=== PATIENT | female | born 1975 | race Caucasian/White ===

== ENCOUNTER 2016-08-31 09:15 | Emergency (ER) | payer OTHER ==
[2016-08-31] MEDS ORDERED: ACETAMINOPHEN 325 MG TABLET PO STA (09:53)
[2016-08-31] MEDS ORDERED: IBUPROFEN 400 MG TABLET PO STA (09:53)
[2016-08-31] MEDS ORDERED: TETANUS/DIPHTHERIA/PERTUSSIS 0.5 ML SYRINGE IM ONE ×2 (09:55→10:06)
[2016-08-31] MEDS ORDERED: IBUPROFEN 400 MG TABLET PO ONE (10:06)
[2016-08-31] MEDS ORDERED: ACETAMINOPHEN 325 MG TABLET PO ONE (10:06)
== END 2016-08-31 12:22 | disposition home or self-care (01) ==
DX: S52.501A Unspecified fracture of the lower end of right radius, initial encounter for closed fracture (principal); S60.221A Contusion of right hand, initial encounter; S01.311A Laceration without foreign body of right ear, initial encounter; S00.431A Contusion of right ear, initial encounter; W01.0XXA Fall on same level from slipping, tripping and stumbling without subsequent striking against object, initial encounter; Z23 Encounter for immunization; I10 Essential (primary) hypertension; F17.200 Nicotine dependence, unspecified, uncomplicated
CPT/HCPCS: 29125; 73110; 73130; 90471; 90715; 99283; 99284; A9270

== ENCOUNTER 2016-12-23 08:00 | Outpatient (CLI) | payer OTHER ==
[2016-12-23 18:54] LABS: BASOPHILS % (AUTO) 0.7 %; EOSINOPHILS # (AUTO) 0.1 10^3/uL (0.0-0.7); EOSINOPHILS % (AUTO) 1.5 %; HCT - HEMATOCRIT 31.7 % (37.0-47.0); HGB - HEMOGLOBIN 10.7 g/dL (12.0-16.0); LYMPHOCYTES # (AUTO) 1.1 10^3/uL (1.5-3.5); LYMPHOCYTES % (AUTO) 16.9 %; MEAN CORPUSCULAR HEMOGLOBIN 36.3 pg (27.0-31.0); MEAN CORPUSCULAR HGB CONC 33.7 g/dL (32.0-36.0); MEAN CORPUSCULAR VOLUME 107.9 fL (81.0-99.0); MONOCYTES # (AUTO) 0.5 10^3/uL (0.0-1.0); MONOCYTES % (AUTO) 7.2 %; NEUTROPHILS # (AUTO) 4.9 10^3/uL (1.5-6.6); NEUTROPHILS % (AUTO) 73.7 %; RED BLOOD COUNT 2.94 10^6/uL (4.20-5.40); RED CELL DISTRIBUTION WIDTH 15.7 % (12.0-15.0); UNCORRECTED WHITE BLOOD COUNT 6.6 x10^3/uL; WHITE BLOOD COUNT 6.6 x10^3/uL (4.8-10.8)
[2016-12-23 18:54] LABS: UR CULTURE IF IND INDICATED; WBC,URINE 0-3 /HPF (0-5)
[2016-12-23 19:19] LABS: ALBUMIN/GLOBULIN RATIO 1.1 (1.0-2.2); BILIRUBIN,TOTAL 0.7 mg/dL (0.2-1.0); CALCIUM 9.1 mg/dL (8.5-10.3); CREATININE 0.7 mg/dL (0.4-1.0); POTASSIUM 4.1 mmol/L (3.5-5.0); TOTAL PROTEIN 6.6 g/dL (6.7-8.2)
== END 2016-12-23 23:59 ==
LOC: LAB.F 08:00
PROVIDERS: ATTEND Physician Assistant Medical
DX: Z86.79 Personal history of other diseases of the circulatory system (principal); Z51.81 Encounter for therapeutic drug level monitoring; N39.0 Urinary tract infection, site not specified
CPT/HCPCS: 36415; 80053; 81001; 81003; 85025; 87086

== ENCOUNTER 2017-01-30 08:00 | Outpatient (CLI) | payer OTHER ==
[2017-01-31 11:38] LABS: BASOPHILS # (AUTO) 0.1 10^3/uL (0.0-0.1); BASOPHILS % (AUTO) 0.9 %; EOSINOPHILS # (AUTO) 0.2 10^3/uL (0.0-0.7); EOSINOPHILS % (AUTO) 2.7 %; LYMPHOCYTES # (AUTO) 2.3 10^3/uL (1.5-3.5); LYMPHOCYTES % (AUTO) 35.7 %; MEAN CORPUSCULAR HEMOGLOBIN 35.7 pg (27.0-31.0); MEAN CORPUSCULAR HGB CONC 33.3 g/dL (32.0-36.0); MEAN CORPUSCULAR VOLUME 107.2 fL (81.0-99.0); MEAN PLATELET VOLUME 7.8 fL (7.9-10.8); MONOCYTES # (AUTO) 0.4 10^3/uL (0.0-1.0); MONOCYTES % (AUTO) 6.6 %; NEUTROPHILS # (AUTO) 3.5 10^3/uL (1.5-6.6); NEUTROPHILS % (AUTO) 54.1 %; NUCLEATED RED BLOOD CELLS AUTO 0.1 /100WBC; RED BLOOD COUNT 3.36 10^6/uL (4.20-5.40); RED CELL DISTRIBUTION WIDTH 14.6 % (12.0-15.0); UNCORRECTED WHITE BLOOD COUNT 6.5 x10^3/uL; WHITE BLOOD COUNT 6.5 x10^3/uL (4.8-10.8)
[2017-01-31 11:49] LABS: ALBUMIN/GLOBULIN RATIO 1.3 (1.0-2.2); BILIRUBIN,TOTAL 0.5 mg/dL (0.2-1.0); CALCIUM 9.5 mg/dL (8.5-10.3); POTASSIUM 4.3 mmol/L (3.5-5.0); TOTAL PROTEIN 7.3 g/dL (6.7-8.2)
[2017-01-31 12:08] LABS: BILIRUBIN,URINE NEGATIVE (NEGATIVE)
== END 2017-01-30 08:01 | disposition home or self-care (01) ==
LOC: LAB.F 08:00
PROVIDERS: ATTEND Physician Assistant Medical
DX: N39.0 Urinary tract infection, site not specified (principal); R94.5 Abnormal results of liver function studies; D64.9 Anemia, unspecified
CPT/HCPCS: 36415; 80053; 81001; 85025; 87086

== ENCOUNTER 2017-02-17 10:14 | Outpatient (CLI) | payer OTHER ==
[2017-02-17 20:11] LABS: TRIGLYCERIDES > 2000 mg/dL
[2017-02-17 20:12] LABS: CHOL/HDL RATIO 13.8 (<4.4); CHOLESTEROL 525 mg/dL
== END 2017-02-17 10:15 | disposition home or self-care (01) ==
LOC: LAB.F 10:14
PROVIDERS: ATTEND Internal Medicine
DX: E78.00 Pure hypercholesterolemia, unspecified (principal); R74.8 Abnormal levels of other serum enzymes
CPT/HCPCS: 36415; 80061; 81599; 82977; 84075

== ENCOUNTER 2017-04-11 12:36 | Outpatient (CLI) | payer OTHER | END 2017-04-11 12:37 | disposition home or self-care (01) | LOC: LAB.F 12:36 | PROVIDERS: ATTEND Internal Medicine | DX: R74.8 Abnormal levels of other serum enzymes (principal); E78.2 Mixed hyperlipidemia | CPT/HCPCS: 36415; 80053; 80061 ==

== ENCOUNTER 2017-04-24 12:35 | Outpatient (CLI) | payer OTHER ==
[2017-04-24 18:31] LABS: BILIRUBIN,TOTAL 1.1 mg/dL (0.2-1.0); BUN - BLOOD UREA NITROGEN 21 mg/dL (6-20); CALCIUM 9.8 mg/dL (8.5-10.3); CARBON DIOXIDE - CO2 25 mmol/L (21-32); CHLORIDE 99 mmol/L (101-111); CHOL/HDL RATIO 12.7 (<4.4); CHOLESTEROL 469 mg/dL; CREATININE 1.7 mg/dL (0.4-1.0); GFR - MDRD 33 (>89); GLUCOSE 131 mg/dL (70-100); HDL CHOLESTEROL 37 mg/dL; POTASSIUM 4.5 mmol/L (3.5-5.0); SODIUM 134 mmol/L (135-145); TOTAL PROTEIN 6.9 g/dL (6.7-8.2); TRIGLYCERIDES 964 mg/dL
[2017-04-24 18:51] LABS: LDL CHOLESTEROL,DIRECT 209 mg/dL
== END 2017-04-24 12:36 | disposition home or self-care (01) ==
LOC: LAB.F 12:35
PROVIDERS: ATTEND Internal Medicine
DX: R74.8 Abnormal levels of other serum enzymes (principal); E78.2 Mixed hyperlipidemia
CPT/HCPCS: 80053; 80061

== ENCOUNTER 2017-04-25 12:55 | Outpatient (CLI) | payer OTHER ==
[2017-04-25 19:08] LABS: BILIRUBIN,URINE NEGATIVE (NEGATIVE)
[2017-04-25 19:16] LABS: UR CULTURE IF IND INDICATED; WBC,URINE 0-3 /HPF (0-5)
[2017-04-25 20:08] LABS: ALBUMIN/GLOBULIN RATIO 1.1 (1.0-2.2); BILIRUBIN,DIRECT 0.1 mg/dL (0.1-0.5); CALCIUM 9.5 mg/dL (8.5-10.3); CREATININE 1.7 mg/dL (0.4-1.0); POTASSIUM 4.5 mmol/L (3.5-5.0); TOTAL PROTEIN 7.4 g/dL (6.7-8.2)
[2017-04-27 19:56] LABS: SMOOTH MUSCLE IGG AB <20 U (())
[2017-04-29 16:42] LABS: ANA SCREEN NEGATIVE (NEGATIVE)
[2017-04-29 22:06] LABS: LIVER KIDNEY MICROSOME AB <20.0 U (())
== END 2017-04-25 12:56 | disposition home or self-care (01) ==
LOC: LAB.F 12:55
PROVIDERS: ATTEND Internal Medicine
DX: N17.9 Acute kidney failure, unspecified (principal); R74.8 Abnormal levels of other serum enzymes; R94.5 Abnormal results of liver function studies
CPT/HCPCS: 36415; 80053; 81001; 82043; 82248; 82570; 82728; 83516; 83540; 84466; 86038; 86317; 86376; 86704; 86803; 87086; 87340

== ENCOUNTER 2017-05-07 08:50 | Outpatient (CLI) | payer OTHER | END 2017-05-07 08:51 | disposition home or self-care (01) | LOC: LAB.F 08:50 | PROVIDERS: ATTEND Physician Assistant Medical | DX: R79.89 Other specified abnormal findings of blood chemistry (principal) | CPT/HCPCS: 36415; 81256 ==

== ENCOUNTER 2017-07-23 15:24 | Emergency (ER) | payer OTHER ==
[2017-07-23] MEDS ORDERED: ONDANSETRON 4 MG/2 ML VIAL IVP STA (15:41)
[2017-07-23] MEDS ORDERED: LORazepam 2 MG/ML SYRINGE IVP STA ×2 (15:41→16:39)
--- NOTE | 2017-07-23 15:45 | ED Physician Documentation ---
PD HPI FOCAL NEURO - Stated complaint Stated Complaint: VOMITING/DIZZINESS - Chief complaint Chief Complaint: Neuro - History obtained from History obtained from: Patient, Other (HENRRY Khan called me PARALEGAL LEGAL SECRETARY) - History of Present Illness Timing - onset: Other (42-year-old woman with well-controlled bipolar disorder and hypertension presents with a couple of months of vertigo that was initially intermittent but now constant for the last 2 weeks associated with vomiting and pressure around her right eye and a headache at the vertex. She was sent to an bench scientist yesterday who noted I think a visual field deficit on the right and when this was noted she was referred here for advanced imaging.) Review of Systems Ten Systems: 10 systems reviewed and negative Constitutional: denies: Fever, Chills Eyes: reports: Loss of vision, Decreased vision, Photophobia. denies: Discharge , Irritation Ears: denies: Loss of hearing, Ear pain, Drainage/discharge Nose: reports: Congestion, Sinus pressure / pain. denies: Rhinorrhea / runny nose Throat: denies: Sore throat PD PAST MEDICAL HISTORY - Past Medical History Cardiovascular: Hypertension, High cholesterol Respiratory: Pneumonia Neuro: None Endocrine/Autoimmune: None GI: None : None, Kidney stones HEENT: None, Other Psych: Depression, Anxiety, Bipolar disorder Musculoskeletal: None, Chronic back pain Derm: None - Past Surgical History Past Surgical History: Yes Ortho: Other /INSURANCE SALESPERSON: Hysterectomy - Present Medications Home Medications: Ambulatory Orders Medication Instructions Recorded Confirmed Lisinopril [Zestril] 20 mg PO DAILY 08/20/13 08/31/16 QUEtiapine [SEROquel] 300 mg PO QPM 08/20/13 08/31/16 Atorvastatin [Lipitor] 40 mg PO QPM 02/21/15 08/31/16 Lorazepam [Ativan] 1 mg PO TID PRN #15 tablet 07/17/15 08/31/16 Meclizine HCl 1 tab PO Q6H PRN #15 tab.chew 07/23/17 Ondansetron HCl [Zofran] 4 mg PO Q6H PRN #10 tablet 07/23/17 diazePAM [Valium] 5 mg PO TID PRN #8 tablet 07/23/17 - Allergies Allergies/Adverse Reactions: Allergies Allergy/AdvReac Type Severity Reaction Status Date / Time Penicillins Allergy Severe Hives Verified 07/23/17 15:29 Sulfa (Sulfonamide Allergy Severe Rash/N/V Verified 07/23/17 15:29 Antibiotics) bupropion HCl * Allergy Rash Verified 07/23/17 15:29 [From Wellbutrin] - Social History Does the pt smoke?: Yes Smoking Status: Current every day smoker Does the pt drink ETOH?: Yes Does the pt have substance abuse?: No - Immunizations Immunizations are current?: Yes - POLST Patient has POLST: No PD ED PE NORMAL - Vitals Vital signs reviewed: Yes - General General: Alert and oriented X 3, Other (She is uncomfortable) - HEENT HEENT: PERRL, EOMI, Pharynx benign, Other (No visual field deficit on exam) - Neck Neck: Supple, no meningeal sign, No bony TTP - Cardiac Cardiac: RRR, No murmur - Respiratory Respiratory: No respiratory distress, Clear bilaterally - Abdomen Abdomen: Normal bowel sounds, Soft, Non tender - Extremities Extremities: No deformity, No tenderness to palpate, No edema, No calf tenderness / cord - Neuro Neuro: Alert and oriented X 3, 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, No motor deficit, No sensory deficit, Normal speech Eye Opening: Spontaneous Motor: Obeys Commands Verbal: Oriented GCS Score: 15 - Psych Psych: Normal mood, Normal affect NIHSS - Time Time: 15:40 - Level of Consciousness Level of consciousness: (0) Alert, Keenly responsive LOC Questions: (0) Answers both Q's correct LOC Commands: (0) Performs both correctly - Gaze Best Gaze: (0) Normal - Visual Visual: (0) No loss - Facial Palsy Facial Palsy: (0) Normal, symmetrical movement - Motor Arms (both separate) Motor Arm (right): (0) No drift Motor Arm (left): (0) No drift - Motor Legs (both separate) Motor Leg (right): (0) No drift Motor Leg (left): (0) No drift - Limb Ataxia Limb Ataxia: (0) Absent - Sensory Sensory: (0) Normal - Best Language Best Language: (0) No aphasia - Dysarthria Dysarthria: (0) Normal - Extinction and Inattention (formally neg Extinction and inattention: (0) No abnormality - Total Score/Results Total Score/Result: 0 Results - Vitals Vitals: Vital Signs - 24 hr 07/23/17 07/23/17 15:26 18:16 Temperature 36.2 C L 37.2 C Heart Rate 100 106 H Respiratory 18 18 Rate Blood Pressure 146/98 H 143/97 H O2 Saturation 100 97 Oxygen O2 Source Room air - Labs Labs: Laboratory Tests 07/23/17 07/23/17 15:57 15:57 WBC 7.0 RBC 3.72 L Hgb 14.0 Hct 38.8 MCV 104.4 H MCH 37.6 H MCHC 36.0 RDW 14.2 Plt Count 142 MPV 8.0 Neut # 5.5 Lymph # 1.7 [place] # 0.5 Eos # 0.0 Baso # 0.1 Absolute Nucleated RBC 0.00 Nucleated RBC % 0.0 Manual Slide Review Indicated Platelet Estimate NORMAL (130-450,000) Platelet Morphology NORMAL APPEARANCE RBC Morph Micro Appear NORMAL APPEARANCE Sodium 134 L Potassium 3.8 Chloride 95 L Carbon Dioxide 22 Anion Gap 15.0 H BUN 14 Creatinine 0.7 Estimated GFR (MDRD) 92 Glucose 110 H Calcium 8.5 Total Bilirubin 1.0 AST 873 H ALT 410 H Alkaline Phosphatase 560 H Total Protein 6.3 L Albumin 3.2 Globulin 3.1 Albumin/Globulin Ratio 1.0 Lipase 35 - Rads (name of study) MRI Brain Radiology: EMP read contemporaneously (normal excepty fluid in left TMJ) PD MEDICAL DECISION MAKING - ED course ED course: 42-year-old woman with increasing vertigo, some other concerning symptoms like headache and this nebulous finding of potentially a visual field deficit on the right diagnosed by her bench scientist 2 days ago. There are no physical exam findings here of a visual field deficit, but because of this MRI imaging was obtained and negative. Follow-up with her primary care physician for hypertriglyceridemia which she is not currently being treated for but the patient was already aware of was advised. She is also grieving because her boyfriend recently. Because of lipemia there is a significant delay in her labs, the liver enzymes were resulted after she left, her chart was reviewed and it looks like this is a pre-existing albeit worsening problem, she recently had a liver and ultrasound showing fatty liver, had hepatitis testing that was negative. Departure - Departure Disposition: 01 Home, Self Care Clinical Impression: Vertigo Hyperlipidemia Qualifiers: Hyperlipidemia type: pure hyperglyceridemia Qualified Code(s): E78.1 - Pure hyperglyceridemia Condition: Good Record reviewed to determine appropriate education?: Yes Instructions: Meclizine, ED Vertigo Unspecified Prescriptions: diazePAM [Valium] 5 mg PO TID PRN #8 tablet PRN Reason: Vertigo Meclizine HCl 1 tab PO Q6H PRN #15 tab.chew PRN Reason: Vertigo Ondansetron HCl [Zofran] 4 mg PO Q6H PRN #10 tablet PRN Reason: Nausea / Vomiting Comments: Follow-up with your doctor, discuss grief counseling, referral to an ear nose and throat physician, and treatments for your hypertriglyceridemia. Return if worse. Do not drink or drive while taking either the meclizine or the Valium. Your blood pressure was elevated today on check into the emergency department. This does not mean that you have hypertension, it is a common phenomenon to come to the emergency department and have elevated blood pressure. I recommend that you see your primary care physician within the week to have it rechecked when you are feeling better. Forms: Activity restrictions Discharge Date/Time: 07/23/17 19:10
[2017-07-23] MEDS ORDERED: LORazepam 2 MG/ML SYRINGE ONE ×2 (16:02→16:50)
[2017-07-23] MEDS ORDERED: ONDANSETRON 4 MG/2 ML VIAL ONE (16:02)
[2017-07-23 16:16] LABS: BASOPHILS # (AUTO) 0.1 10^3/uL (0.0-0.1); BASOPHILS % (AUTO) 1.2 %; EOSINOPHILS % (AUTO) 0.3 %; LYMPHOCYTES # (AUTO) 1.7 10^3/uL (1.5-3.5); LYMPHOCYTES % (AUTO) 22.1 %; MONOCYTES # (AUTO) 0.5 10^3/uL (0.0-1.0); MONOCYTES % (AUTO) 6.1 %; NEUTROPHILS # (AUTO) 5.5 10^3/uL (1.5-6.6); NEUTROPHILS % (AUTO) 70.3 %
[2017-07-23] MEDS ORDERED: GADOBUTROL 10 MMOL/10 ML VIAL ONE (16:31)
[2017-07-23 16:43] LABS: HCT - HEMATOCRIT 38.8 % (37.0-47.0); MEAN CORPUSCULAR HEMOGLOBIN 37.6 pg (27.0-31.0); MEAN CORPUSCULAR VOLUME 104.4 fL (81.0-99.0); RED BLOOD COUNT 3.72 10^6/uL (4.20-5.40); RED CELL DISTRIBUTION WIDTH 14.2 % (12.0-15.0)
[2017-07-23 16:45] LABS: PLATELET ESTIMATE, MANUAL NORMAL (130-450,000) (NORMAL); PLATELET MORPHOLOGY NORMAL APPEARANCE (NORMAL)
[2017-07-23 17:34] LABS: CALCIUM 8.5 mg/dL (8.5-10.3); CREATININE 0.7 mg/dL (0.4-1.0); POTASSIUM 3.8 mmol/L (3.5-5.0); TOTAL PROTEIN 6.3 g/dL (6.7-8.2)
[2017-07-23] MEDS ORDERED: GADOBUTROL 10 MMOL/10 ML VIAL IVP ONE (17:38)
[2017-07-23] MEDS ORDERED: MECLIZINE 12.5 MG TABLET PO STA (18:03)
[2017-07-23 18:19] VITALS: BP 143/97
[2017-07-23] MEDS ORDERED: MECLIZINE 12.5 MG TABLET PO ONE (18:19)
[2017-07-23] MEDS ORDERED: PROMETHAZINE INJ 25 MG in SODIUM CHLORIDE 0.9% 50 ML IV STA (18:22)
--- NOTE | 2017-07-23 18:28 | MRI Preliminary Report ---
Exam: MRI BRAIN W/WO IMPRESSION: 1.Normal MRI of the brain without and with contrast. No acute abnormality. 2. Normal MRI of the orbits. 3. Normal MRI of the IAC and posterior fossa. 4. Small amount of fluid in the left TMJ. [facility] SITE ID: [id number]
--- NOTE | 2017-07-23 18:30 | MRI Report ---
EXAM: MRI BRAIN AND ORBITS WITHOUT AND WITH CONTRAST EXAM DATE: 07/23/2017 05:53 PM. CLINICAL HISTORY: Vertigo with visual field defecit. COMPARISON: CT scan of the head 01/24/2009. TECHNIQUE: Multiplanar, multisequence T1-weighted and fluid-sensitive MR sequences of the brain were performed. Sequences optimized for routine, orbit, and IAC evaluation. Other: None. IV Contrast: 10 c c Gadavist. FINDINGS: Brain Volume: Normal for age. Parenchyma: No acute hemorrhage, mass, or infarct. Lee matter and white matter signal is unremarkabl e. A punctate 1.5 mm focus of subcortical white matter FLAIR bright signal is seen anterior to the le ft insula. No abnormal enhancement. Ventricles/Cisterns: No hydrocephalus. No abnormal extra-axial fluid collection or hemorrhage. Orbits: Symmetric and unremarkable. The globes, optic nerve sheath complex, extraocular muscles, and orbital fat are unremarkable. The lacrimal glands are symmetric and unremarkable. Sella Turcica: The pituitary gland, cavernous sinuses, suprasellar cistern and optic chiasm are unrem arkable. IAC: Symmetric and unremarkable. Cranial nerve VII/8 complex within the CPA cistern and IAC are symme tric and unremarkable. The inner ear structures are symmetric and unremarkable. Vasculature: Normal signal flow void is seen in the major arterial structures at the skull base. The dural sinuses are patent and enhance normally. Sinuses: No acute sinus disease. Bones: No focal pathologic appearing marrow signal changes. Note is made of an oval 8 x 4 x 10 mm flu id collection in the posterior inferior left TMJ, consistent with joint space/bursal fluid. Other: None. IMPRESSION: 1.Normal MRI of the brain without and with contrast. No acute abnormality. 2. Normal MRI of the orbits. 3. Normal MRI of the IAC and posterior fossa. 4. Small amount of fluid in the left TMJ. [facility] Referring Provider Line: [phone] SITE ID: [id number]
[2017-07-23] MEDS ORDERED: PROMETHAZINE 25 MG/1 ML VIAL ONE (18:35)
[2017-07-27 21:17] LABS: TEST RESULT REPORT
== END 2017-07-23 19:10 | disposition home or self-care (01) ==
LOC: ED 15:24
DX: R42 Dizziness and giddiness (principal); E78.1 Pure hyperglyceridemia; I10 Essential (primary) hypertension; E78.00 Pure hypercholesterolemia, unspecified
CPT/HCPCS: 36415; 70553; 80053; 81599; 83690; 85025; 96374; 96375; 96376; 99283; A9270; A9585; J2060; J7040; 80061

== ENCOUNTER 2018-10-16 11:06 | Outpatient (CLI) | payer OTHER ==
[2018-10-16 18:22] LABS: BASOPHILS % (AUTO) 0.6 %; EOSINOPHILS # (AUTO) 0.1 10^3/uL (0.0-0.7); EOSINOPHILS % (AUTO) 1.6 %; HGB - HEMOGLOBIN 12.3 g/dL (12.0-16.0); LYMPHOCYTES # (AUTO) 1.2 10^3/uL (1.5-3.5); LYMPHOCYTES % (AUTO) 28.9 %; MEAN CORPUSCULAR HEMOGLOBIN 36.6 pg (27.0-31.0); MEAN CORPUSCULAR HGB CONC 33.6 g/dL (32.0-36.0); MEAN CORPUSCULAR VOLUME 109.1 fL (81.0-99.0); MEAN PLATELET VOLUME 7.7 fL (7.9-10.8); MONOCYTES # (AUTO) 0.2 10^3/uL (0.0-1.0); MONOCYTES % (AUTO) 5.6 %; NEUTROPHILS # (AUTO) 2.6 10^3/uL (1.5-6.6); NEUTROPHILS % (AUTO) 63.3 %; PLT - PLATELET COUNT 165 10^3/uL (130-450); RED BLOOD COUNT 3.37 10^6/uL (4.20-5.40); RED CELL DISTRIBUTION WIDTH 16.8 % (12.0-15.0); WHITE BLOOD COUNT 4.2 x10^3/uL (4.8-10.8)
[2018-10-16 19:51] LABS: ALBUMIN 3.8 g/dL (3.2-5.5); ALBUMIN/GLOBULIN RATIO 1.3 (1.0-2.2); ALKALINE PHOSPHATASE 147 IU/L (42-121); ALT ALANINE AMINOTRANSFERASE 45 IU/L (10-60); AST ASPARTATE AMINOTRANSFERASE 82 IU/L (10-42); BILIRUBIN,TOTAL 1.2 mg/dL (0.2-1.0); BUN - BLOOD UREA NITROGEN 5 mg/dL (6-20); CALCIUM 8.7 mg/dL (8.5-10.3); CARBON DIOXIDE - CO2 27 mmol/L (21-32); CHLORIDE 96 mmol/L (101-111); CHOLESTEROL 337 mg/dL; CREATININE 0.7 mg/dL (0.4-1.0); GFR - MDRD 91 (>89); GLUCOSE 162 mg/dL (70-100); HDL CHOLESTEROL 48 mg/dL; SODIUM 135 mmol/L (135-145); TOTAL PROTEIN 6.8 g/dL (6.7-8.2)
== END 2018-10-16 11:07 | disposition home or self-care (01) ==
LOC: LAB.F 11:06
PROVIDERS: ATTEND Physician Assistant Medical
DX: N85.8 Other specified noninflammatory disorders of uterus (principal)
CPT/HCPCS: 36415; 80053; 80061; 83721; 84443; 85025

== ENCOUNTER 2018-11-04 14:22 | Outpatient (CLI) | payer OTHER ==
[2018-11-04 18:49] LABS: HB2 TOTAL 12.6 g/dL; HEMOGLOBIN A1C 0.62 g/dL; HEMOGLOBIN A1C % 6.7 % (4.6-6.2)
== END 2018-11-04 14:23 | disposition home or self-care (01) ==
LOC: LAB.F 14:22
PROVIDERS: ATTEND Physician Assistant Medical
DX: R73.01 Impaired fasting glucose (principal)
CPT/HCPCS: 36415; 83036